=== PATIENT | male | born 1940 | race Caucasian/White ===

== ENCOUNTER 2018-07-03 20:51 | Emergency (ER) | payer OTHER, MEDICARE ==
--- NOTE | 2018-07-03 21:17 | EDPHY ---
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 He could not reach it and so reached again and pressed all his weight on the edge of the sofa. He said that really hurt in his left chest at that time but it went away after a couple of hours. The next day he had some discomfort on the left side of his chest, not pleuritic and did not radiate. 2 days ago he used weights and did some fly exercises with his left arm and afterwards he was sore on the same part of the left side of his chest. Today around 2:30 p.m. After a burrito he developed some pain in the left side which felt more like heartburn but not with nausea or vomiting. It was in the same place in the left side of his chest where it hurt previously as above. When he had a myocardial infarction as symptoms were very clearly central heartburn with nausea and vomiting. That was 2 and half years ago. He has not had any of that symptomatology today. He says that his symptoms over the last 3 days clearly are different than the symptoms which proceeded his NM. REVIEW OF SYSTEMS: Eye: no change in vision ENT: no sore throat Cardiac: No palpitations or syncope Pulmonary: no cough or SOB Abdomen: No vomiting or diarrhea Musculoskeletal: HPI Skin: no rash Neuro: no headache Constitutional: no fever : no urinary symptoms A comprehensive 10 point review of systems is otherwise negative aside from elements mentioned in the history of present illness. PAST MEDICAL HISTORY: Includes cardiac bypass 2 and half years ago, mi, spinal stenosis with orthopedic surgery, hyperlipidemia, chronic kidney disease Social history: Nonsmoker General Appearance: Alert and conversant, cooperative. Eyes: No scleral icterus. ENT, Mouth: Normal mucous membranes. Respiratory: Normal respiratory effort, breath sounds equal, lungs are clear to auscultation. No crepitus. Cardiovascular: Regular rate and rhythm. Gastrointestinal: Abdomen is soft and non tender. Neurological: Alert, face symmetric, normal motor and sensory in extremities. Skin: Warm and dry, no rashes. No zoster. Musculoskeletal: No calf tenderness. He has a little bit of chest wall tenderness on the left when I push. Activating his pectoralis muscle when I asked to move his arm against resistance also duplicates symptoms. Psychiatric: Not agitated. Emergency Department course/MDM: EKG is not acute but his symptoms are absent at this time. Plan for troponin then discussion about risk stratification. Patient refused chest x-ray. Long discussion with the patient. Emphasized to him that the only way to 100% exclude acute myocardial infarction would be admission for serial EKG and troponin. Think pulmonary embolism would be unlikely as he is currently asymptomatic, normal oxygen saturation, not tachycardic. I do think that clinically this is much more likely to be muscular on the left side of his chest wall, patient states he is comfortable and wants to go home. He states he understands that acute myocardial infarction could not be definitively excluded with the workup so far in the emergency department, the risk of delay in diagnosis or inability diagnosis acute coronary syndrome or myocardial infarction could result in morbidity or mortality including but not limited to heart attack, permanent disability, . He clearly has capacity make decisions regarding his care. His is supportive of his decision. Declines admission for troponin cycling and monitoring. Smoking Status: Never smoked Constitutional: Initial Vital Signs Temperature (C) 36.6 C 07/03/18 21:00 Heart Rate 62 07/03/18 21:00 Respiratory Rate 18 07/03/18 21:00 Blood Pressure 121/67 H 07/03/18 21:00 O2 Sat (%) 94 07/03/18 21:00 O2 Delivery Mode Room Air Allergies/Adverse Reactions: gluten Allergy (Verified 07/03/18 21:03) Home Medications: Medication Instructions Recorded Metoprolol Succinate Xr [Toprol Xl 25 mg PO DAILY 12/12/15 25 mg (*)] Simvastatin [Zocor] 40 mg PO HS 12/12/15 oxyCODONE/APAP 5/325 [Percocet 1 - 2 tab PO Q4 PRN #30 tab 12/13/15 5/325 (*)] valACYclovir [Valtrex (*)] 500 mg PO PRN PRN 06/20/16 Atorvastatin Calcium [Lipitor 20 20 mg PO HS #0 tab 06/22/16 mg (*)] Diazepam [Valium 5 MG (*)] 5 mg PO Q8 PRN #30 tab 06/22/16 Metoprolol Succinate Xr [Toprol Xl 25 mg PO DAILY #0 tab 06/22/16 25 mg (*)] oxyCODONE/APAP 5/325 [Percocet 1 - 2 tab PO Q4 PRN #30 tab 06/22/16 5/325 (*)] valACYclovir [Valtrex (*)] 500 mg PO BID PRN #0 tab 06/22/16 Medical Decision Making - Diagnostics EKG Interpretation: 12-lead EKG interpreted by me; official reading is in computer system. My interpretation is sinus rhythm rate 68 no ischemic changes. Differential Diagnosis: Differential diagnosis considered for chest pain including but not limited to muscular, myocardial ischemia, aortic dissection, pericarditis, pulmonary embolus, chest wall pain, pleural inflammation and pulmonary infectious causes. - Data Points Laboratory Results: Laboratory Results 07/03/18 21:17 07/03/18 21:17 Point of Care Test Results: Chemistry 07/03/18 21:36 POC Troponin I 0.01 ng/mL ng/mL (0.00-0.08) Departure - Departure Disposition: Home, Routine, Self-Care Clinical Impression: Chest wall pain Condition: Good Instructions: Chest Pain (ED), Chest Wall Pain (ED) Referrals: GAUTAM BARKER [Primary Care Provider] - As per Instructions
[2018-07-03 21:43] LABS: PLATELET COUNT 179 10^3/uL (150-400)
--- NOTE | 2018-07-03 21:44 | CPEKG ---
Test Reason : OPEN Blood Pressure : / mmHG Vent. Rate : 068 BPM Atrial Rate : 060 BPM P-R Int : 192 ms QRS Dur : 098 ms QT Int : 407 ms P-R-T Axes : 045 041 063 degrees QTc Int : 433 ms Sinus rhythm Confirmed by Nuno Husain ([id number]) on 07/03/2018 9:44:13 PM Referred By: Confirmed By:Nuno Husain
[2018-07-03 22:11] VITALS: BP 120/59
== END 2018-07-03 22:10 | disposition home or self-care (01) ==
DX: R07.89 Other chest pain (principal); I25.2 Old myocardial infarction
CPT/HCPCS: 84484-PO